=== PATIENT | male | born 1980 | race Caucasian/White ===

== ENCOUNTER 2017-04-26 22:06 | Emergency (ER) | payer MEDICAID ==
[~2017-04-26] VITALS: Ht 177.8 cm; Wt 84.9 kg
[~2017-04-26 22:06] MED LIST: OLAN10TA3 PO; SERT50TA PO
[2017-04-26 22:08] VITALS: BP 135/81
[2017-04-26] MEDS ORDERED: HYDROcodone/APAP 5/325 TABLET ONE (23:08)
[2017-04-26] MEDS ORDERED: HYDROcodone/APAP 5/325 TABLET PO ONE (23:30)
== END 2017-04-27 00:29 | disposition home or self-care (01) ==
LOC: ED 22:30
DX: S62.232A Other displaced fracture of base of first metacarpal bone, left hand, initial encounter for closed fracture (principal); W01.0XXA Fall on same level from slipping, tripping and stumbling without subsequent striking against object, initial encounter; Y93.89 Activity, other specified; Y92.009 Unspecified place in unspecified non-institutional (private) residence as the place of occurrence of the external cause; Y99.9 Unspecified external cause status
CPT/HCPCS: 29125; 99284